=== PATIENT | female | born 1985 | race Two or more races ===

== ENCOUNTER 2025-04-07 21:07 | Emergency (ER) | payer OTHER ==
[~2025-04-07] VITALS: Ht 162.6 cm; Wt 90.7 kg
[2025-04-07 22:00] VITALS: BP 123/75; TEMP 98.7
[2025-04-07 23:24] VITALS: O2SAT 98
== END 2025-04-07 23:27 | disposition home or self-care (01) ==
LOC: ER 21:15
DX: S93.402A Sprain of unspecified ligament of left ankle, initial encounter (principal); Y09 Assault by unspecified means; Y93.89 Activity, other specified; Y92.89 Other specified places as the place of occurrence of the external cause; Y99.8 Other external cause status
CPT/HCPCS: 73590-TC; 73610-TC